=== PATIENT | male | born 1945 | race Caucasian/White ===

== ENCOUNTER 2018-02-11 10:35 | Day surgery (SDC) | payer MEDICARE, BC ==
--- NOTE | 2018-02-11 06:34 | History and Physical - [place] ---
CHIEF COMPLAINT/HISTORY OF CHIEF COMPLAINT: This patient presents with a history of a thoracic and lumbar radiculopathy. Due to the failure of therapies a spinal cord stimulator trial was conducted on 01/15/18 with 75-85% pain control. Due to the failure of all therapy and the success of the trial the patient presents today for implantation of a permanent system. PAST MEDICAL HISTORY: Hypertension. PAST SURGICAL HISTORY: Hand surgery and tonsils. MEDICATIONS ON ADMISSION: List to be provided. ALLERGIES: None listed FAMILY/PSYCHOSOCIAL HISTORY: Social history - Social alcohol. Family history - Coronary artery disease and hypertension. SYSTEMS REVIEW: The patient is appropriate in no acute distress. The remainder of the systems review is positive for glasses, chronic head and neck pain, bronchitis, and degenerative arthritis. PHYSICAL EXAMINATION: Height is 6'3", weight is 240. No vital signs. HEENT: Within normal limits. LUNGS: Clear. HEART: Rapid and regular. ABDOMEN: Nontender. MUSCULOSKELETAL: Examination of the musculoskeletal system shows an area of tenderness diffusely across the mid to upper thoracic spine and extending towards the anterior chest wall. This pain pattern extends throughout the thoracic and lumbar region extending also into both hips and across the outer front surface of both legs. Motor and sensory field abnormalities not identified though functionality to the upper extremities, chest wall, and lower extremities is intact. NEUROLOGIC: Cranial nerves are intact. IMPRESSION: THORACIC AND LUMBAR RADICULOPATHY, ICD-10 CODE M54.14 AND M54.16. PLAN: The patient is here for implantation of a permanent spinal cord stimulator due to the failure of therapy and the success of the trial. The procedure will be considered outpatient, although an overnight stay will be evaluated. JOB NUMBER: [id number] MTDD
[~2018-02-11 10:35] MED LIST: ACETAMINOPHEN 1,000 MG/100 ML BTL IV ONE; CEFAZOLIN 2 Gram 2 GM/50 ML BAG IVPB ONE; FAMOTIDINE 20MG TABLET PO ONE; MECLIZINE 25 MG TABLET PO ONE; METOCLOPRAMIDE 10 MG TABLET PO ONE
[2018-02-11] MEDS ORDERED: LIDOCAINE 1% W/EPI 1:200,000 MPF 30ML SQ ONE (10:36)
[2018-02-11] MEDS ORDERED: LIDOCAINE 2% MDV (20MG/ML) 20ML VIAL IV ONE (10:36)
[2018-02-11] MEDS ORDERED: BUPIVACAINE 0.5% W/EPI MPF 30 ML VIAL IVP ONE (10:36)
[2018-02-11] MEDS ORDERED: MIDAZOLAM HCL 2MG/2ML VIAL IV ONE (10:36)
[2018-02-11] MEDS ORDERED: FENTANYL PF 100MCG/2ML VIAL IV ONE (10:36)
[2018-02-11] MEDS ORDERED: PROPOFOL 10 MG/ML VIAL IV ONE (10:36)
[2018-02-11 10:56] LABS: BLEEDING TIME 4.5 MINUTES (1.5-7.0)
[2018-02-11 11:09] LABS: PARTIAL THROMBOPLASTIN TIME 26.5 SECONDS (24.5-39.1); PROTHROMBIN TIME (PATIENT) 10.3 SECONDS (9.5-12.1)
--- NOTE | 2018-02-11 21:17 | Operative Note ---
DATE OF SURGERY: 02/11/2018 PREOPERATIVE DIAGNOSIS: THORACIC AND LUMBAR RADICULOPATHY, ICD-10 CODE = M54.14 AND M54.16. SURGERY: 1. FLUOROSCOPIC-GUIDED EPIDURAL ACCESS AT T11-12 AND T12-L1 LEFT OF THE MIDLINE WITH CURVED ACCESS EPIMED NEEDLES WITH [id number]. 2. PLACEMENT OF SPINAL CORD STIMULATOR LEAD 1, A [employer] INFINION 16 WITH 6 ELECTRODES POSITIONED LEFT OF MIDLINE AT T2 WITH EPIDURAL ACCESS AND PLACEMENT OF SPINAL CORD STIMULATOR LEAD 2, ALSO A [employer] INFINION 16 WITH 6 ELECTRODES POSITIONED RIGHT AT T2. 3. COMPLEX PROGRAMMING OF LEAD 1 OVER 20 MINUTES FOLLOWED BY COMPLEX PROGRAMMING OF LEAD 2 OVER 20 MINUTES. 4. INCISION, SUBCUTANEOUS DISSECTION, AND ANCHORING OF LEAD 1 AND LEAD 2 TO SUPRASPINOUS FASCIA WITH A [employer] LOCKING ANCHOR. 5. INCISION, SUBCUTANEOUS DISSECTION, AND CREATION OF SUBCUTANEOUS POUCH AT RIGHT FLANK FOR PLACEMENT OF GENERATOR, A [employer] PROGRAMMABLE, RECHARGEABLE WAVEWRITER. 6. TUNNELING BETWEEN POUCHES. PLACEMENT OF EXTERNAL PORTION OF LEAD 1 AND LEAD 2 INTO GENERATOR POUCH, EACH LEAD INTERFACED WITH GENERATOR. 7. WITH GENERATOR PLACED IN THE POUCH AND LEADS PLACED INTO THE POUCH, BOTH INCISIONS WERE CLOSED WITH STRATAFIX SUTURE, #2-0 FASCIA AND #3-0 SKIN. DERMABOND CLOSURE. 8. COMPLEX RECOVERY ROOM PROGRAMMING INTERNAL GENERATOR HOME USE, TWO STIMULATORS, 20 MINUTES. SURGEON: DESMOND ONEIL D.O. ANESTHESIA: LOCAL SEDATION. NANCY SANTANA CRNA. INDICATIONS: This patient presents with a history of intractable thoracic and lumbar radiculopathy. Due to the failure of therapy, a stimulator trial was conducted with 75% to 85% pain control. Due to the failure of other therapies and the success of the trial, the patient presents for implantation of a permanent system. SURGERY: Intravenous line, vital sign monitoring, IV sedation, patient positioned prone. The epidural interspace left of the midline at 11-12 and 12-1 both marked and infiltrated. Curved access Epimed needles with a loss-of- resistance at each level. Spinal cord stimulator lead 1, a [employer] Infinion 16 with 6 electrodes at 11-12 positioned left of the midline at T2. At 12-1, spinal cord stimulator lead 2, also a [employer] Infinion 16 with 6 electrodes was positioned right of the midline at T2. Complex programming of lead 1 over 20 minutes followed by complex programming of lead 2 over 20 minutes resulted in a complete pattern of stimulation across the back and into the legs. The patient indicating we had all the areas of the pain. He was given the option to implant, continue to program, or remove. He opted to implant. The questions were repeated with the same response. The skin above and below both needles was infiltrated, an incision made, and subcutaneous dissection was conducted to the supraspinous fascia. The needles were removed and then the leads were anchored to the supraspinous fascia with a [employer] locking anchor. Antibiotic irrigation and Bovie for hemostasis. At the right flank, a site picked by the patient for the generator, skin infiltrated, incision made and subcutaneous dissection was conducted to form a pouch of suitable size and depth for the generator, a [employer] programmable, rechargeable WaveWriter. A tunneling tool was used to carry the leads into the generator pouch and each lead was interfaced with the generator. The generator was placed into the pouch. The leads were placed into the pouch. Both incisions were closed using STRATAFIX suture, #2-0 for fascia and #3-0 for skin. Dermabond closure. The patient was transported to the Recovery Room stable. When fully awake and alert, complex programming of the internal generator performed in the Recovery Room over 20 minutes, reestablishing stimulation and pain control to all the appropriate areas. At that point, the patient was requesting to go home. He was instructed on the use of the system, provided with information on error messaging, and then prepared for discharge. DISCHARGE INSTRUCTIONS: 1. The sites are to remain clean and dry. Although the Dermabond will allow showering, he should not sit in water. 2. Standard medications resumed, including the antibiotic Levaquin. He will take 500 mg once a day for 14 days. 3. The office will contact the patient in 24 to 48 hours to set up a time in 7 to 10 days to evaluate the sites. Until then, his activities should stay low. All other instructions provided, numbers to contact if problems given. He was then prepared for discharge. cc: Dr. Tae Hernandez JOB NUMBER: [id number] MTDD
--- NOTE | 2018-02-12 12:41 | RADIOLOGY REPORT ---
EXAM: THORACIC SPINE HISTORY: SPINAL CORD STIMULATOR IMPLANT. TECHNIQUE: A single frontal view of the upper/mid thoracic spine was obtained. Comparison: None. FINDINGS: External artifact is present throughout the image. Spinal stimulator leads superimpose the upper thoracic spine. Please see clinician notes for additional details. Diffuse spondylosis throughout the visualized thoracic spine. IMPRESSION: ABOVE. JOB NUMBER: [id number] MTDD
== END 2018-02-11 15:00 | disposition home or self-care (01) ==
LOC: SUR 10:35
PROVIDERS: ATTEND Pain Medicine Interventional Pain Medicine
DX: M54.14 Radiculopathy, thoracic region (principal); M54.16 Radiculopathy, lumbar region; I10 Essential (primary) hypertension; E78.00 Pure hypercholesterolemia, unspecified; E11.9 Type 2 diabetes mellitus without complications; J45.909 Unspecified asthma, uncomplicated
CPT/HCPCS: 63650; 63685; 01936; 95972; 85730; 85610; 85002; 72020; J3010; J0690; C1820; C1883